=== PATIENT | male | born 1975 | race Caucasian/White ===

== ENCOUNTER 2017-01-28 11:00 | Emergency (ER) | payer OTHER ==
--- NOTE | ~2017-01-28 | CR63 ---
[facility] A Service [facility] RADIOLOGY TEXT RESULTS PATIENT: VENUS CAI LOCATION: SED : [birth year] UNIT #: [id number] AGE: [address]: GIOVANNI HARDEN SEX: M ORDER DR: [id number] [place] [id number] E MR#: [id number] Acc #: [id number] NAME: VENUS CAI : 1975 SEX: M STUDY DATE/TIME: 01/28/2017 12:11 UNIT: SED ROOM: STUDY DESCRIPTION: CR Chest 2 View Attending Physician: Giovanni Harden Aprn Ordering Physician: Giovanni Harden Aprn Primary Care Physician: Primary Care Physician No MEDICAL IMAGING REPORT This report is preliminary unless electronic signature is present. EXAM Chest 2 views, 01/28/2017 at 1211 hours CLINICAL HISTORY 41-year-old complaining of left rib pain since last night. Patient was running in wet grass and slipped and fell with trauma to left chest. COMPARISON Chest film 11/06/2012 FINDINGS Upright PA and lateral views of the chest demonstrate normal cardiac, mediastinal and hilar contours. The lungs are well expanded and clear. There is no pleural effusion or pneumothorax. No rib fracture is seen. Thoracic spine is intact. IMPRESSION Normal two-view chest exam. There is no pleural effusion, pneumothorax or fracture seen. Dictated by... Sigrid Ochoa M.D. THIS IS AN ELECTRONICALLY VERIFIED REPORT Sigrid Ochoa M.D. at 01/29/2017 9:48 AM SHANA/keith TD: 01/28/2017 22:34 JOB #: [id number] [facility] A Service of [facility] RADIOLOGY TEXT RESULTS PATIENT: VENUS CAI LOCATION: SED : 77 UNIT #: [id number] AGE: [address]: GIOVANNI HARDEN SEX: M ORDER DR: MEDICAL IMAGING REPORT Page 1 of 1
[~2017-01-28 11:00] MED LIST: ASPIRIN81 MG PO; DICLOFENAC PO; FLEXERIL PO; LISINOPRIL-HCTZ1 T14 PO; LOPRESSOR PO; NO MEDICATIONS; NORVASC PO
== END 2017-01-28 13:14 | disposition home or self-care (01) ==
LOC: SED 11:00
DX: S20.212A Contusion of left front wall of thorax, initial encounter (principal); I10 Essential (primary) hypertension; F17.210 Nicotine dependence, cigarettes, uncomplicated; Z98.890 Other specified postprocedural states; W18.30XA Fall on same level, unspecified, initial encounter; Y92.009 Unspecified place in unspecified non-institutional (private) residence as the place of occurrence of the external cause
CPT/HCPCS: 71020; 99285